=== PATIENT | female | born 2000 | race Asian ===

== ENCOUNTER 2022-08-01 09:56 | Emergency (ER) | payer OTHER ==
[~2022-08-01] VITALS: Ht 160 cm; Wt 69.4 kg
[2022-08-01 10:00] VITALS: BP 125/84; TEMP 98.7
[2022-08-01 10:58] LABS: PLATELET COUNT 289 K/uL (152-353)
[2022-08-01 11:05] LABS: POTASSIUM 3.5 mmol/L (3.6-5.2); SODIUM 137 mmol/L (136-145)
== END 2022-08-01 11:37 | disposition home or self-care (01) ==
LOC: ED 09:56
PROVIDERS: Emergency Medicine
DX: M94.0 Chondrocostal junction syndrome [Tietze] (principal); R00.2 Palpitations
CPT/HCPCS: 80048; 84484; 85027; 93005; 99283